=== PATIENT | female | born 1980 | race Native Hawaiian/Other Pacific Islander ===

== ENCOUNTER 2016-10-27 12:02 | Outpatient (CLI) | payer OTHER ==
[2016-10-27 12:51] VITALS: BMI 35.2
[2016-10-27] MEDS ORDERED: MAGNESIUM HYDROXIDE/AL HYDROX 30 ML UDCUP PO PRN (13:08)
[2016-10-27] MEDS ORDERED: OXYCODONE/ACETAMINOPHEN 5/325 MG TABLET PO PRN (13:13)
[2016-10-27 13:24] LABS: PH,URINE 6.5 (5.0-8.0); URINE BILIRUBIN NEGATIVE (NEGATIVE); URINE BLOOD TRACE (NEGATIVE); URINE GLUCOSE (UA) NEGATIVE (NEGATIVE); URINE LEUKOCYTE ESTERASE NEGATIVE (NEGATIVE); URINE NITRITE NEGATIVE (NEGATIVE); URINE PROTEIN NEGATIVE (NEGATIVE); URINE UROBILINOGEN NORMAL (0-1 mg/dl)
[2016-10-27 13:27] LABS: URINE APPEARANCE HAZY; URINE COLOR DARK YELLOW
[2016-10-27 13:35] LABS: URINE BACTERIA 2+; URINE RBC 0-1 /hpf; URINE WBC 0-1 /hpf
--- NOTE | 2016-10-27 14:05 | US ---
ABDOMINAL-LIMITED HISTORY: Right upper quadrant pain with questionable gallbladder stone removal. COMPARISONS: 04/01/2011. FINDINGS: Ultrasonography of the right upper quadrant was performed. The gallbladder is not identified on this examination, possibly due to prior removal. The common hepatic duct is normal measuring 2.7 mm adjacent to the gallbladder fossa. The visualized portions of the liver are within expected. IMPRESSION: 1. Nonvisualization of the gallbladder, possibly due to prior resection. No current findings of biliary dilatation are observed.
[2016-10-27 14:17] LABS: ABSOLUTE NEUTROPHIL COUNT 8.4 K/mm3 (1.8-7.7); BASO % 0.3 % (0.2-1.0); EOS # 0.1 (0.0-0.5); EOS % 1.1 % (0.9-2.9); HEMATOCRIT 36.6 % (37.0-47.0); HEMOGLOBIN 12.3 gm/l (12.0-16.0); IMM NEUT% 0.4 % (0-1); LYMPH # 1.3 (1.0-4.8); LYMPH % 12.5 % (15-45); MEAN CELL VOLUME 88.4 fl (81.0-99.0); MEAN CORPUSCULAR HEMOGLOBIN 29.7 pg (27.0-31.0); MEAN CORPUSCULAR HGB CONC 33.6 g/dl (33.0-37.0); MEAN PLATELET VOLUME 9.1 fl (7.4-10.4); MONO # 0.4 (0.0-0.8); MONO % 4.2 % (4-12); NEUT % 81.5 % (43-75); PLATELET COUNT 291 K/mm3 (130-400); RED CELL DISTRIBUTION WIDTH 13.1 % (11.5-14.5)
[2016-10-27 14:42] LABS: LIPASE 45 U/L (11-82)
[2016-10-27 14:43] LABS: ALB/GLOB RATIO 1.2 (>1.0); ALBUMIN 3.5 gm/dL (3.5-5.7); CALCIUM 8.6 mg/dL (8.6-10.3)
--- NOTE | 2016-10-27 15:41 | PDOC36 ---
Provider Note Subject: Triage Note Note: Gertrude is a at 26 weeks and 5 days c/o RUQ. She describes the pain as intermittent, sharp and stabbing. Pain level is 9/10. Grimaces with the pain and clutches at her right side during talking. The pain is unrelated to eating. No nausea related to the pain specifically. No vomiting noted. This started last night at 3:00am on her left side and then radiated to mid- epigastric and then RUQ during the night. She has a hx of indigestion and states this does not feel the same. Nothing has relieved the pain over the last few hours. If she pushes her hand against the area she says there is mild relief of pain but not completely. Questioned patient about her gallbladder. She says she has a hx of removal of gallstones in 2013. Reviewed patient's chart and she had a cholecystectomy in 2013. Usn was ordered and there is no biliary dilation or abnormalities of the liver. FHR is by doppler due to body habitus and inability to maintain a continuous FHR with EFM. Pt reports regular movement, no LOF or bleeding. Labs are pending, Malox ordered and given. Pain medication PRN. At 14:20 pt is requesting to eat and has food at the bedside. Since she has an appetite she was encouraged to try and see if the pain changes.
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
== END 2016-10-27 16:18 | disposition home or self-care (01) ==
LOC: FBCOUT 12:02 → FBC 12:38 → FBCOUT 16:18
PROVIDERS: ATTEND Advanced Practice Midwife
DX: O26.892 Other specified pregnancy related conditions, second trimester (principal); R10.13 Epigastric pain; Z3A.26 26 weeks gestation of pregnancy; Z90.49 Acquired absence of other specified parts of digestive tract
CPT/HCPCS: 83690; 82150; 85025; 80053; 81001; 36415; 76705; 59025; 81002; A9270 ×2; G0463

== ENCOUNTER 2016-12-17 12:39 | Emergency (ER) | payer OTHER ==
[2016-12-17] MEDS ORDERED: LACTATED RINGERS 1,000 ML ONE (13:12)
[2016-12-17 13:23] LABS: BASO % 0.2 % (0.2-1.0); EOS # 0.3 (0.0-0.5); HEMATOCRIT 36.1 % (37.0-47.0); HEMOGLOBIN 11.8 gm/l (12.0-16.0); IMM NEUT # 0.1 K/mm3 (0-0.2); IMM NEUT% 0.6 % (0-1); LYMPH # 1.8 (1.0-4.8); LYMPH % 18.4 % (15-45); MEAN CORPUSCULAR HEMOGLOBIN 29.4 pg (27.0-31.0); MEAN CORPUSCULAR HGB CONC 32.7 g/dl (33.0-37.0); MEAN PLATELET VOLUME 9.4 fl (7.4-10.4); MONO # 0.5 (0.0-0.8); MONO % 5.4 % (4-12); NEUT % 72.4 % (43-75); PLATELET COUNT 264 K/mm3 (130-400); RED CELL DISTRIBUTION WIDTH 13.7 % (11.5-14.5)
[2016-12-17 13:49] LABS: ALB/GLOB RATIO 1.1 (>1.0); ALBUMIN 3.4 gm/dL (3.5-5.7); CALCIUM 8.7 mg/dL (8.6-10.3); MAGNESIUM 1.7 mg/dL (1.9-2.7)
[2016-12-17] MEDS ORDERED: ONDANSETRON 4 MG/2ML 2 ML VIAL ONE (14:29)
[2016-12-17] MEDS ORDERED: MAALOX/LIDO2%VISC/SIMETHICONE 40 ML BOT ONE (14:29)
[2016-12-17] MEDS ORDERED: FAMOTIDINE 10 MG/ML 2ML VIAL ONE (14:30)
[2016-12-17 14:48] LABS: PH,URINE 6.5 (5.0-8.0); SPECIFIC GRAVITY 1.015 (1.001-1.030); URINE BILIRUBIN NEGATIVE (NEGATIVE); URINE BLOOD NEGATIVE (NEGATIVE); URINE GLUCOSE (UA) NEGATIVE (NEGATIVE); URINE LEUKOCYTE ESTERASE NEGATIVE (NEGATIVE); URINE NITRITE NEGATIVE (NEGATIVE); URINE PROTEIN NEGATIVE (NEGATIVE); URINE UROBILINOGEN NORMAL (0-1 mg/dl)
[2016-12-17 14:58] LABS: URINE APPEARANCE CLEAR; URINE COLOR YELLOW
== END 2016-12-17 15:46 | disposition home or self-care (01) ==
LOC: ED 12:39
DX: O26.893 Other specified pregnancy related conditions, third trimester (principal); R10.13 Epigastric pain; O21.2 Late vomiting of pregnancy; Z3A.34 34 weeks gestation of pregnancy
CPT/HCPCS: 83690; 85025; 80053; 83735; 81003; 96375; 99284; 96374; 96361 ×2; 99283; A9270; J2405; J7120